=== PATIENT | female | born 2000 | race Caucasian/White ===

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

== ENCOUNTER 2021-03-30 21:43 | Emergency (ER) | payer OTHER ==
[~2021-03-30] VITALS: Ht 157.4 cm; Wt 77.1 kg
[~2021-03-30 21:43] MED LIST changes: +CYCLOBENZAPRINE5 M3 PO; +Motrin,Rufen800 MG PO
[2021-03-30 23:09] LABS: EOS % 0.3 % (1.0-4.0); HEMATOCRIT 43.3 % (37.0-47.0); LYMPH # 0.8 10*3/uL (1.3-4.4); LYMPH % 12.3 % (27.0-41.0); MEAN CELL VOLUME 83.9 fl (81.0-99.0); MEAN CORPUSCULAR HGB 28.1 pg (27.0-31.0); MEAN CORPUSCULAR HGB CONC 33.5 g/dl (33.0-37.0); MONO # 0.5 10*3/uL (0.1-1.0); MONO % 8.1 % (3.0-9.0); NEUT # 5.3 10*3/uL (2.3-7.9); NEUT % 79.2 % (47.0-73.0); PLATELET COUNT AUTOMATED 217 10*3/uL (130-400); RED BLOOD COUNT 5.16 10*6/uL (4.10-5.10); WHITE BLOOD COUNT 6.7 10*3/uL (4.8-10.8)
[2021-03-30 23:24] LABS: ALBUMIN 3.5 gm/dl (3.1-4.5); ALKALINE PHOSPHATASE 83 U/L (45-117); BUN 10 mg/dl (7-24); CHLORIDE 105 mmol/L (98-107); CREATININE 0.59 mg/dL (0.55-1.02); LIPASE 91 U/L (73-393); POTASSIUM 3.5 mmol/L (3.5-5.1); SGOT/AST 11 IU/L (3-35); SGPT/ALT 17 U/L (12-78); SODIUM 136 mmol/L (136-145); TOTAL PROTEIN 7.3 gm/dL (6.4-8.2)
[2021-03-31 00:23] LABS: BILIRUBIN Negative (Negative); BLOOD Negative (Negative); CLARITY Cloudy (Clear); COLOR Yellow (Yellow); GLUCOSE Negative (Negative); KETONE 3+ (Negative); LEUKO ESTERASE Negative (Negative); NITRITE Negative (Negative); SPECIFIC GRAVITY 1.025 (1.001-1.030); UROBILINOGEN 0.2 E.U./dl (0.0-1.0)
[2021-03-31 00:41] LABS: BACTERIA TRACE
== END 2021-03-31 02:30 | disposition home or self-care (01) ==
LOC: ED 21:43
PROVIDERS: Physician Assistant
DX: R11.2 Nausea with vomiting, unspecified (principal); R19.7 Diarrhea, unspecified; R10.13 Epigastric pain; R42 Dizziness and giddiness; K21.9 Gastro-esophageal reflux disease without esophagitis

== ENCOUNTER 2022-05-15 12:50 | Emergency (ER) | payer OTHER ==
[~2022-05-15] VITALS: Ht 160 cm; Wt 79.4 kg
[2022-05-15 15:33] LABS: BASO # 0.1 10*3/uL (0.0-0.1); BASO % 0.5 % (0.0-1.0); EOS # 0.6 10*3/uL (0.0-0.4); EOS % 5.9 % (1.0-4.0); HEMATOCRIT 40.9 % (37.0-47.0); LYMPH # 3.1 10*3/uL (1.3-4.4); LYMPH % 32.5 % (27.0-41.0); MEAN CELL VOLUME 85.2 fl (81.0-99.0); MEAN CORPUSCULAR HGB 28.1 pg (27.0-31.0); MEAN PLATELET VOLUME 9.6 fl (9.6-12.3); MONO # 0.8 10*3/uL (0.1-1.0); MONO % 8.5 % (3.0-9.0); NEUT % 52.4 % (47.0-73.0); PLATELET COUNT AUTOMATED 275 10*3/uL (130-400); WHITE BLOOD COUNT 9.6 10*3/uL (4.8-10.8)
[2022-05-15 15:54] LABS: ALKALINE PHOSPHATASE 69 U/L (45-117); BUN 12 mg/dl (7-24); CHLORIDE 108 mmol/L (98-107); LIPASE 295 U/L (73-393); SGOT/AST 17 IU/L (3-35); SGPT/ALT 18 U/L (12-78); SODIUM 142 mmol/L (136-145); TOTAL PROTEIN 7.3 gm/dL (6.4-8.2)
[2022-05-15 16:02] LABS: THYROID STIM HORMONE (HS) 0.818 uIU/ml (0.358-4.75)
== END 2022-05-15 19:35 | disposition home or self-care (01) ==
LOC: ED 12:50
PROVIDERS: Nurse Practitioner Family
DX: K44.9 Diaphragmatic hernia without obstruction or gangrene (principal); K59.00 Constipation, unspecified; N13.5 Crossing vessel and stricture of ureter without hydronephrosis; K21.9 Gastro-esophageal reflux disease without esophagitis

== ENCOUNTER → 2022-06-18 | Outpatient (CLI) | payer OTHER | END | disposition home or self-care (01) | LOC: NM 06-04 11:00 | PROVIDERS: ATTEND Urology | DX: N13.39 Other hydronephrosis (principal) ==